=== PATIENT | male | born 1935 | race Caucasian/White ===

== ENCOUNTER 2023-10-27 08:30 | Emergency (ER) | payer OTHER, SELFPAY ==
[2023-10-27 08:32] VITALS: BP 177/73
--- NOTE | 2023-10-27 09:08 | ED.GENMED ---
History of Present Illness
General
Chief Complaint: Chest Pain
Source: patient
Exam Limitations: none
Time Seen by Provider: 10/27/23 08:46
Travel History
Have you had any contact with someone who has COVID-19?: No
Do you have any symptoms of coronavirus? Fever > 100 degrees, chills, cough, shortness of breath, sore throat, loss of taste or smell, muscle aches, or headache?: No
History of Present Illness
History of Present Illness:
See MDM
Past History
Past History
ED Past Medical History: Other
ED Past Surgical History: Orthopedic
Social History
Tobacco: Non-smoker
Alcohol: None
Drug: None
Living: with family
Employment: Retired
Family History
Family History: Other
Phy Exam
Physical Exam
Physical Exam:
See MDM
Scores
Heart Score for Chest Pain Patients
STEMI patient?: No
History: Slightly or Non-Suspicious
ECG: Normal
Age: >/= 65 years
Risk Factors: No Risk Factors
Troponin: </= Normal Limit
Heart Score for Chest Pain Patients: 2
Heart Score Risk: 2.5% MACE over next 6 weeks
Course
Orders/Labs/Results
Orders:
Orders
10/27/23 08:35
EKG [Electrocardiogram (*1)] Urgent
Reason for Study: Chest Pain
EKG- Treatment ONCE
10/27/23 09:08
CR Chest - 2 Views Urgent
Comment:
Reason For Exam: intermittent L side chest pain
10/27/23 09:15
Complete Blood Count/With Diff Urgent
Comprehensive Metabolic Panel Urgent
Troponin I Urgent
Abnormal Lab Results
10/27/23
09:15
RBC 3.78 L 10^6/uL
(4.70-6.10)
Hgb 12.8 L g/dL
(13.0-18.0)
Hct 37.0 L %
(39.0-52.0)
MCV 97.9 H fL
(80.0-94.0)
MCH 33.9 H pg
(27.0-31.0)
Monocytes % 9.4 H %
(1.7-9.3)
10/27/23 09:15
10/27/23 09:15
Vital Signs
Initial and Last Documented VS:
Initial Vital Signs
Temp Pulse Resp BP Pulse Ox
97.8 F 54 16 177/73 99
10/27/23 08:32 10/27/23 08:32 10/27/23 08:32 10/27/23 08:32 10/27/23 08:32
Last Documented Vital Signs
Temp Pulse Resp BP Pulse Ox
97.8 F 54 16 177/73 99
10/27/23 08:32 10/27/23 08:32 10/27/23 08:32 10/27/23 08:32 10/27/23 08:32
MDM/Problems Addressed
Differential Diagnosis Includes:
HPI and MDM Narrative:
87-year-old male presenting with intermittent left-sided chest pain for the past 2 weeks or so. Patient states that pain will last for several seconds to several minutes and appears to happen a couple times a day. He cannot recognize any pattern.
There is no pain when he exerts himself. He denies prior cardiac history. Patient states that he wanted to get the pain checked out and denies any increase in symptoms today or over the past few days.
On exam, he is well-appearing nontoxic. Heart regular rate and rhythm. EKG nonischemic. He denies leg edema. No reproducible tenderness. Given age and complaint, will obtain chest x-ray and troponin
Physical exam
General: Well appearing and non-toxic
HEENT: protecting airway
Neck: appears supple
CV: No evidence of cyanosis. Regular rate and rhythm
Chest: No reproducible tenderness on exam
Resp: No accessory muscle use
Abd: Non-distended
Extremities: No deformities. No leg edema or unilateral tenderness
Neuro: alert
Psych: Normal affect
Skin: Intact
Problems Addressed including Acute and Chronic Conditions affecting care:
1. Left-sided chest pain
Acuity: acute
Prognosis: stable
Details: Appears to be random. Given age and complaint, will obtain chest x-ray and troponin.
Updates
Troponin and chest x-ray negative. At this point, at bedside believes that he is doing too much yard work and may be strained his muscle. Will place on cardiac callback tracker
Differential Diagnosis (but not limited to): Cardiac arrhythmia, muscle strain, coronary spasm
Testing considered: D-dimer but symptoms are random and fleeting
Drug therapy (if applicable): OTC meds, please see d/c instruction regarding Rx drugs
Amount and/or Complexity of Data Reviewed
Clinical info obtained from: Patient. believes it is muscle strain from too much yard work
External data reviewed: N/A
Labs I independently reviewed (but not limited to): Troponin negative
Radiology: X-ray independently reviewed: Chest x-ray clear
Pulse Ox: not hypoxic
EKG independently reviewed: Sinus rhythm, normal axis, no STEMI
Gas Line Repairer: Sinus rhythm
Critical Care: N/A
Risk of Complication:
Social Determinants of health: Good social support
Discussed with other providers: N/A
Escalation of Care includes Admit/Obs: After being observed in the Emergency Department, pt stable for discharge.
Occasional wrong word or 'sound a like' substitutions may have occurred due to the inherent limitations of voice recognition software. Read the chart carefully and recognize, using context, where substitutions have occurred.
*Critical Care Note
Total Time (30-74mins, 75-104mins- exclusive of procedures): Not Applicable
ED Attending Note
-
Portions of this chart may have been created with voice recognition software.� Occasional wrong word or��sound alike� substitutions may have occurred due to the inherent limitations of voice recognition software.
Discharge Plan
Departure
Patient Disposition: Home (Routine Discharge)
Date of Disposition: 10/27/23
Time of Disposition: 10:35
Patient with high blood pressure during this ER visit?: Yes
Discharge Problem:
Chest pain
Instructions: Chest Pain CBC Follow Up, BLOOD PRESSURE
Referrals:
Stanislav Boucher MD [Family Provider] -
Lisestte Vargas MD [Active] -
Activity Restrictions/Additional Instructions:
Please return for any worsening symptoms.
You may return at any time if you have further concerns.
Please follow up with your doctor at the first available appointment, preferably this week.
You were placed on the cardiac callback tracker. Someone from their office should call you in the next few days. If you do not hear from them in the next few days, please give them a call.
Thank you for choosing [facility].
Interventions
Interventions:
*Risk Screen - Suicide Last Done: 10/27/23 08:34
*General Assessment Last Done: 10/27/23 08:34
*Neglect/Abuse Screening Last Done: 10/27/23 08:34
Discharge Date and Time
Print Language: [id number]
[2023-10-27 10:03] LABS: % Basophils 0.5 % (0-2); % Eosinophils 4.1 % (0-6); % Immature Granulocytes 0.4 % (0-0.5); % Lymphocytes 21.8 % (20.5-51.1); % Monocytes 9.4 % (1.7-9.3); % Neutrophils 63.8 % (42.2-75.2); Absolute Eosinophils 0.2 10^3/uL (0-0.7); Absolute Lymphocytes 1.2 10^3/uL (1.2-3.4); Absolute Monocytes 0.5 10^3/uL (0.1-0.6); Absolute Neutrophils 3.6 10^3/uL (1.4-6.5); Hemoglobin 12.8 g/dL (13.0-18.0); Mean Corp Hgb Conc. 34.6 g/dL (33.0-37.0); Mean Corpuscular Hgb 33.9 pg (27.0-31.0); Mean Corpuscular Volume 97.9 fL (80.0-94.0); Mean Platelet Volume 9.4 fL (7.4-10.4); Nucleated Red Blood Cells % 0 % (-); Platelet Count 191 10^3/uL (130-400); Red Blood Cell Count 3.78 10^6/uL (4.70-6.10); Red Cell Dist. Width 11.8 % (11.5-14.5); White Blood Cell Count 5.6 10^3/uL (4.8-10.8)
[2023-10-27 10:16] LABS: ALT (SGPT) 19 U/L (0-50); AST (SGOT) 25 U/L (17-59); Albumin 4.2 g/dl (3.5-5.0); Alkaline Phosphatase 68 U/L (38-126); Blood Urea Nitrogen 20 mg/dl (9-20); Calcium 9.5 mg/dl (8.4-10.2); Carbon Dioxide 30 mmol/L (22-30); Chloride 106 mmol/L (98-107); Glucose 94 mg/dl (70-99); Sodium 143 mmol/L (135-145); Total Bilirubin 0.6 mg/dl (0.2-1.3); Total Protein 6.8 g/dl (6.3-8.2); eGFR > 60.00
[2023-10-27 10:27] LABS: Troponin I < 0.012 ng/ml
[2023-10-27 10:45] VITALS: BP 164/77
[2023-10-27 10:53] VITALS: BP 166/77
== END 2023-10-27 10:54 | disposition home or self-care (01) ==
LOC: EMR 08:30
PROVIDERS: EMERGENCY PHYSICIAN Student in an Organized Health Care Education/Training Program; FAMILY PHYSICIAN Internal Medicine
DX: R07.89 Other chest pain (principal)
CPT/HCPCS: 99283; 71046; 80053; 84484; 85025; 93005